=== PATIENT | male | born 1990 ===

== ENCOUNTER 2017-09-11 01:56 | Emergency (ER) | payer SELFPAY ==
[2017-09-11 02:21] VITALS: RESP 18
--- NOTE | 2017-09-11 03:19 | ED PDOC ---
HPI: Male Pain Time Seen by Provider: 09/11/17 02:09 Chief Complaint (Nursing): Male Genitourinary Chief Complaint (Provider): Male Genitourinary History Per: Patient History/Exam Limitations: no limitations Onset/Duration Of Symptoms: Other (x1 year) Current Symptoms Are (Timing): Still Present Additional Complaint(s): 27 yo male presents to the ED complaining of on-going right-sided testicular swelling, onset of 1 year ago. Patient also reports that the swelling has been increasing in size for the past 3 months, but denies dysuria, fever, nausea or vomiting. Of note, the patient reports of 4/10 pain that prompted his ED visit today, and he has not taken any pain medications prior to arrival. Past Medical History Reviewed: Historical Data, Nursing Documentation, Vital Signs Vital Signs: Last Vital Signs Temp 97.5 F L 09/11/17 02:19 Pulse 88 09/11/17 02:19 Resp 18 09/11/17 02:19 BP 133/81 09/11/17 02:19 Pulse Ox 100 09/11/17 02:19 - Medical History PMH: No Chronic Diseases - Surgical History Surgical History: No Surg Hx - Family History Family History: States: Unknown Family Hx - Social History Current smoker - smoking cessation education provided: No Ex-Smoker (has not smoked in the last 12 months): No Alcohol: Social Drugs: Denies - Home Medications Home Medications: Ambulatory Orders Medication Instructions Recorded Ibuprofen [Motrin Tab] 600 mg PO Q6 #30 tab 09/11/17 - Allergies Allergies/Adverse Reactions: Allergies Allergy/AdvReac Type Severity Reaction Status Date / Time No Known Allergies Allergy Verified 09/11/17 02:19 Review of Systems ROS Statement: Except As Marked, All Systems Reviewed And Found Negative Gastrointestinal: Negative for: Nausea, Vomiting Genitourinary Male: Positive for: Scrotal Pain (right testicle). Negative for: Dysuria Physical Exam - Reviewed Nursing Documentation Reviewed: Yes Vital Signs Reviewed: Yes - Physical Exam Appears: Positive for: Well, Non-toxic, No Acute Distress Head Exam: Positive for: ATRAUMATIC, NORMAL INSPECTION, NORMOCEPHALIC Skin: Positive for: Normal Color, Warm, DRY Eye Exam: Positive for: EOMI, Normal appearance, PERRL ENT: Positive for: Normal ENT Inspection Neck: Positive for: Normal, Painless ROM Cardiovascular/Chest: Positive for: Regular Rate, Rhythm. Negative for: Murmur Respiratory: Positive for: Normal Breath Sounds. Negative for: Respiratory Distress Gastrointestinal/Abdominal: Positive for: Normal Exam, Bowel Sounds, Soft Male Genital Exam: Positive for: hernia mass (large right inguinal hernia that herniates at the scrotal sack; ). Negative for: erythema, other (evidence of strangulation or incarceration) Back: Positive for: Normal Inspection Extremity: Positive for: Normal ROM Neurologic/Psych: Positive for: Alert, Oriented - ECG O2 Sat by Pulse Oximetry: 100 (RA) Pulse Ox Interpretation: Normal Medical Decision Making Medical Decision Making: Time: --02:50 Impression: --Hernia Plan: --Motrin 600mg PO Reassess Advised to followup with surgery as outpatient. Return precautions discussed. Scribe Attestation: Documented by Cordell Gillespie acting as a scribe for Sumanth Waggoner MD. Provider Attestation: All medical record entries made by the Scribe were at my direction and personally dictated by me. I have reviewed the chart and agree that the record accurately reflects my personal performance of the history, physical exam, medical decision making, and the department course for this patient. I have also personally directed, reviewed, and agree with the discharge instructions and disposition. Disposition - Clinical Impression Clinical Impression: Hernia - Disposition Referrals: Kyle Pascal MD [Staff Provider] - Disposition: Routine/Home Disposition Time: 02:50 Condition: STABLE Prescriptions: Ibuprofen [Motrin Tab] 600 mg PO Q6 #30 tab Instructions: Inguinal and Femoral (Groin) Hernias, Groin Hernia (DC) Forms: [employer] (Frisian) Print Language: [id number]
[2017-09-11 04:06] VITALS: TEMP 97.6
[2017-09-11 04:25] VITALS: BP 110/72; PULSE 64
[2017-09-11 05:41] VITALS: O2SAT 100
== END 2017-09-11 04:24 | disposition home or self-care (01) ==
LOC: H.ER 01:56
DX: K46.9 Unspecified abdominal hernia without obstruction or gangrene (principal)